=== PATIENT | female | born 1975 | race Caucasian/White ===

== ENCOUNTER 2023-10-23 23:59 | Emergency (ER) | payer BC ==
[~2023-10-23] VITALS: Ht 165.1 cm; Wt 80.3 kg
[2023-10-24 00:17] VITALS: BP_SYST 137; PULSE 77; RESP 16; TEMP 97.9; O2SAT 98
[2023-10-24] MEDS: KETOROLAC TROMETHAMINE 60 MG/2 ML VIAL IM ONE (02:37)
[2023-10-24] MEDS ORDERED: NAPR-1172 PO (03:06)
[2023-10-24 03:10] VITALS: BP_SYST 137; PULSE 77; RESP 16; TEMP 97.9; O2SAT 98
== END 2023-10-24 03:10 | disposition home or self-care (01) ==
LOC: SED 23:59
DX: S43.402A Unspecified sprain of left shoulder joint, initial encounter (principal); X58.XXXA Exposure to other specified factors, initial encounter; Y93.89 Activity, other specified; Y92.89 Other specified places as the place of occurrence of the external cause; Y99.8 Other external cause status; Z79.899 Other long term (current) drug therapy
CPT/HCPCS: 99283; 29105; 73030; 96372; J1885